=== PATIENT | female | born 1980 | race Caucasian/White ===

== ENCOUNTER 2020-06-11 14:15 | Inpatient (IN) | payer MEDICAID, OTHER ==
[~2020-06-11] VITALS: Ht 154.9 cm; Wt 62.7 kg
[~2020-06-11 14:15] MED LIST: ALBU18HF2 INH; FLUT100D2 INH; LOSA25TA41 PO; OSEL30CA PO; POTA20TA19 PO; SILD20TA PO
[2020-06-11 16:36] LABS: BASOPHILS # (AUTO) 0.1 X10'3 (0-0.2); BASOPHILS % (AUTO) 0.7 % (0-1); EOSINOPHILS # (AUTO) 0.5 X10'3 (0-0.9); EOSINOPHILS % (AUTO) 5.2 % (0-6); HEMATOCRIT 43.9 % (35.0-45.0); HEMOGLOBIN 14.9 g/dl (12.0-16.0); LYMPHOCYTES # (AUTO) 0.8 X10'3 (1.1-4.8); LYMPHOCYTES % (AUTO) 7.9 % (21-51); MEAN CORPUSCULAR HEMOGLOBIN 32.9 PG (27.0-31.0); MEAN CORPUSCULAR HGB CONC 33.9 g/dL (33.0-36.5); MEAN CORPUSCULAR VOLUME 96.9 FL (78-98); MEAN PLATELET VOLUME 7.7 FL (7.4-10.4); MONOCYTES # (AUTO) 0.6 X10'3 (0-0.9); MONOCYTES % (AUTO) 6.3 % (2-12); NEUTROPHILS # (AUTO) 7.8 X10'3 (1.8-7.7); NEUTROPHILS % (AUTO) 79.9 % (42-75); PLATELET COUNT 227 X10'3 (140-440); RED BLOOD COUNT 4.53 X10'6 (4.20-5.60); RED CELL DISTRIBUTION WIDTH 16.2 % (11.5-14.5); WHITE BLOOD COUNT 9.8 X10'3 (4.5-11.0)
[2020-06-11 16:57] LABS: ALANINE AMINOTRANSFERASE 54 U/L (12-78); ALBUMIN 3.7 G/DL (3.4-5.0); ALBUMIN/GLOBULIN RATIO 0.8 (1.1-1.5); ALKALINE PHOSPHATASE 106 IU/L (46-116); ANION GAP 6 (8-16); ASPARTATE AMINO TRANSFERASE 30 U/L (10-37); BILIRUBIN,TOTAL 1.4 MG/DL (0.1-1.0); BLOOD UREA NITROGEN 20 MG/DL (7-18); BUN/CREATININE RATIO 15.3 (6.6-38.0); CALCIUM 8.9 MG/DL (8.5-10.1); CHLORIDE 101 MMOL/L (99-107); CREATININE 1.31 MG/DL (0.40-0.90); GLUCOSE 131 MG/DL (70-104); POTASSIUM 4.5 MMOL/L (3.5-5.1); SODIUM 133 MMOL/L (135-145); TOTAL CARBON DIOXIDE 26.1 MMOL/L (24-32); TOTAL PROTEIN 8.2 G/DL (6.4-8.2); eGFR 45 ML/MIN
[2020-06-11 17:05] LABS: MAGNESIUM 1.9 MG/DL (1.5-2.4)
[2020-06-11 17:50] LABS: D-DIMER 0.51 MG/L FEU (0-0.50)
[2020-06-11 17:52] LABS: HCG SERUM QL NEGATIVE
--- NOTE | 2020-06-11 19:48 | NUR ---
per previous nurse and pt stated condition, pt was treated at [facility], where pulmonary htn put her in critical condition. after dc, pt was instructed to take new bp medication-- pt just began medication today and experienced an allergic reaction ft hives. pt reports hx of kidney issues.
[2020-06-11] MEDS ORDERED: SELE200T32 PO (20:03)
[2020-06-11] MEDS ORDERED: SILD20TA PO (20:03)
[2020-06-11] MEDS ORDERED: DIGO125T PO (20:03)
[2020-06-11] MEDS ORDERED: SPIR25TA5 PO (20:03)
[2020-06-11] MEDS ORDERED: HYDR-3686 PO (20:03)
[2020-06-11] MEDS ORDERED: PRED5TAB PO (20:03)
[2020-06-11] MEDS ORDERED: hydrOXYzine 25 MG tablet PO PRN (20:20)
[2020-06-11] MEDS ORDERED: ondansetron/PF 4mg/2ml inj IV PRN (20:25)
[2020-06-11] MEDS ORDERED: potassium Cl 40MEQ/1/2NS 520ml 520 ML IV PRN ×2 (20:25)
[2020-06-11] MEDS ORDERED: acetaminophen 325mg tablet PO PRN (20:25)
[2020-06-11] MEDS ORDERED: mag hydrox/Alum hydrox/simeth 30ml oral suspension PO PRN (20:25)
[2020-06-11] MEDS ORDERED: ipratropium/albuterol 3ml nebule NEB PRN (20:25)
[2020-06-11] MEDS ORDERED: magnesium hydroxide 30ml (MOM) UD suspension PO PRN (20:25)
[2020-06-11] MEDS ORDERED: magnesium 4gm in 100ml NS 100 ML IV PRN (20:25)
[2020-06-11] MEDS ORDERED: potassium Cl 20 mEq SR tablet PO PRN ×2 (20:25)
[2020-06-11] MEDS ORDERED: magnesium 2GM in 50ml NS 50 ML IV PRN (20:25)
[2020-06-11] MEDS ORDERED: spironolactone 25 MG tablet PO ONE (20:35)
[2020-06-11] MEDS ORDERED: SELEXIPAG PO ONE (22:15)
[2020-06-11 22:44] LABS: URINE AMPHETAMINE SCREEN NEGATIVE (Neg); URINE BARBITUATE SCREEN NEGATIVE (Neg); URINE BENZODIAZEPINES SCREEN NEGATIVE (Neg); URINE CANNABINOID SCREEN NEGATIVE (Neg); URINE COCAINE SCREEN NEGATIVE (Neg); URINE METHADONE SCREEN NEGATIVE (Neg); URINE OPIATE SCREEN NEGATIVE (Neg); URINE PHENCYCLIDINE SCREEN NEGATIVE (Neg)
[2020-06-11] MEDS: sildenafil citrate 20mg tablet PO SCH (23:51)
[2020-06-12] MEDS: normal saline 1000ml 1,000 ML IV SCH ×3 (00:17→18:26)
[2020-06-12 04:19] LABS: BASOPHILS % (AUTO) 0.6 % (0-1); EOSINOPHILS # (AUTO) 0.3 X10'3 (0-0.9); EOSINOPHILS % (AUTO) 4.2 % (0-6); HEMATOCRIT 39.1 % (35.0-45.0); HEMOGLOBIN 13.2 g/dl (12.0-16.0); LYMPHOCYTES # (AUTO) 1.4 X10'3 (1.1-4.8); LYMPHOCYTES % (AUTO) 17.4 % (21-51); MEAN CORPUSCULAR HGB CONC 33.8 g/dL (33.0-36.5); MEAN CORPUSCULAR VOLUME 97.5 FL (78-98); MEAN PLATELET VOLUME 7.4 FL (7.4-10.4); MONOCYTES # (AUTO) 0.9 X10'3 (0-0.9); MONOCYTES % (AUTO) 11.3 % (2-12); NEUTROPHILS # (AUTO) 5.2 X10'3 (1.8-7.7); NEUTROPHILS % (AUTO) 66.5 % (42-75); PLATELET COUNT 218 X10'3 (140-440); RED BLOOD COUNT 4.01 X10'6 (4.20-5.60); RED CELL DISTRIBUTION WIDTH 16.1 % (11.5-14.5); WHITE BLOOD COUNT 7.9 X10'3 (4.5-11.0)
[2020-06-12 04:32] LABS: ALBUMIN 3.1 G/DL (3.4-5.0); ANION GAP 10 (8-16); BLOOD UREA NITROGEN 18 MG/DL (7-18); BUN/CREATININE RATIO 20.7 (6.6-38.0); CHLORIDE 107 MMOL/L (99-107); CREATININE 0.87 MG/DL (0.40-0.90); GLUCOSE 81 MG/DL (70-104); POTASSIUM 3.9 MMOL/L (3.5-5.1); SODIUM 140 MMOL/L (135-145); TOTAL CARBON DIOXIDE 22.8 MMOL/L (24-32); TOTAL PROTEIN 6.9 G/DL (6.4-8.2); eGFR 72 ML/MIN
[2020-06-12 04:33] LABS: ALANINE AMINOTRANSFERASE 49 U/L (12-78); ALBUMIN/GLOBULIN RATIO 0.8 (1.1-1.5); ALKALINE PHOSPHATASE 87 IU/L (46-116); ASPARTATE AMINO TRANSFERASE 24 U/L (10-37)
[2020-06-12 04:35] LABS: CHOL/HDL RATIO 3.2 (0.00-4.99); CHOLESTEROL 224 MG/DL (0-200); HDL CHOLESTEROL 71 MG/DL (35-60); LDL CHOLESTEROL 148 MG/DL (50-100); MAGNESIUM 1.9 MG/DL (1.5-2.4); TRIGLYCERIDES 71 MG/DL (20-135)
--- NOTE | 2020-06-12 08:00 | NUR ---
PROVIDED PT BREAKFAST.
[2020-06-12] MEDS: spironolactone 25 MG tablet PO SCH ×2 (08:58→21:50)
[2020-06-12] MEDS: digoxin 125mcg (0.125mg) tablet PO SCH (09:00)
[2020-06-12] MEDS: sildenafil citrate 20mg tablet PO SCH ×3 (09:00→21:52)
[2020-06-12] MEDS: predniSONE 5mg tablet PO SCH (09:00)
[2020-06-12] MEDS: SELEXIPAG PO SCH ×2 (09:06→22:18)
[2020-06-12] MEDS: K and/or MAG REPLACEMENT MC SCH ×2 (09:07→20:00)
--- NOTE | 2020-06-12 10:00 | NUR ---
PT RESTING, WATCHING A MOVIE ON HER CELL PHONE, NO NEEDS AT THIS TIME, CALL LIGHT IN REACH
[2020-06-12] MEDS ORDERED: TORS20TA3 PO (11:42)
[2020-06-12] MEDS ORDERED: ETHA25TA4 PO (11:48)
--- NOTE | 2020-06-12 13:00 | NUR ---
PROVIDED PT LUNCH TRAY.
--- NOTE | 2020-06-12 17:58 | NUR ---
field supervisor seed production aware rn tried to call report, no nurse availible to take report at this time, will give report after shift change.
--- NOTE | 2020-06-12 18:04 | NUR ---
provided pt dinner
[2020-06-12 18:30] VITALS: BP 96/59
--- NOTE | 2020-06-12 18:30 | NUR ---
Patient in room PCU 3013. I have received report from Lisa from ER and had the opportunity to ask questions and assume patient care.
[2020-06-12] MEDS ORDERED: enoxaparin 40mg/0.4ml syringe SQ SCH (20:00)
[2020-06-12] MEDS: TORSEMIDE 20 MG PO SCH (20:00)
[2020-06-12] MEDS ORDERED: furosemide 40mg tablet PO SCH (21:40)
[2020-06-12 21:56] VITALS: BP 105/80
[2020-06-12 22:15] VITALS: BP 107/72
[2020-06-13 02:00] VITALS: BP 110/55
[2020-06-13 06:00] VITALS: BP 117/81
--- NOTE | 2020-06-13 06:20 | NUR ---
Patient in room PCU 3013. I have received report from Kvng PRATHER and had the opportunity to ask questions and assume patient care.
--- NOTE | 2020-06-13 06:21 | NUR ---
Problems reprioritized. Patient report given, questions answered & plan of care reviewed with George-YAMILKA.
[2020-06-13] MEDS: predniSONE 5mg tablet PO SCH (07:26)
[2020-06-13] MEDS: spironolactone 25 MG tablet PO SCH (07:26)
[2020-06-13] MEDS: digoxin 125mcg (0.125mg) tablet PO SCH (07:28)
[2020-06-13] MEDS: SELEXIPAG PO SCH (07:29)
[2020-06-13] MEDS: sildenafil citrate 20mg tablet PO SCH ×2 (07:30→13:00)
[2020-06-13] MEDS: TORSEMIDE 20 MG PO SCH (08:00)
[2020-06-13] MEDS: K and/or MAG REPLACEMENT MC SCH (08:00)
[2020-06-13 08:24] LABS: BASOPHILS # (AUTO) 0.1 X10'3 (0-0.2); BASOPHILS % (AUTO) 0.7 % (0-1); EOSINOPHILS # (AUTO) 0.9 X10'3 (0-0.9); EOSINOPHILS % (AUTO) 10.5 % (0-6); HEMATOCRIT 40.5 % (35.0-45.0); HEMOGLOBIN 13.5 g/dl (12.0-16.0); LYMPHOCYTES # (AUTO) 1.7 X10'3 (1.1-4.8); LYMPHOCYTES % (AUTO) 20.6 % (21-51); MEAN CORPUSCULAR HEMOGLOBIN 32.7 PG (27.0-31.0); MEAN CORPUSCULAR HGB CONC 33.2 g/dL (33.0-36.5); MEAN CORPUSCULAR VOLUME 98.4 FL (78-98); MEAN PLATELET VOLUME 7.5 FL (7.4-10.4); MONOCYTES % (AUTO) 11.8 % (2-12); NEUTROPHILS # (AUTO) 4.6 X10'3 (1.8-7.7); NEUTROPHILS % (AUTO) 56.4 % (42-75); PLATELET COUNT 245 X10'3 (140-440); RED BLOOD COUNT 4.11 X10'6 (4.20-5.60); RED CELL DISTRIBUTION WIDTH 16.3 % (11.5-14.5); WHITE BLOOD COUNT 8.1 X10'3 (4.5-11.0)
[2020-06-13 08:59] LABS: ALANINE AMINOTRANSFERASE 50 U/L (12-78); ALBUMIN 3.4 G/DL (3.4-5.0); ALBUMIN/GLOBULIN RATIO 0.9 (1.1-1.5); ALKALINE PHOSPHATASE 93 IU/L (46-116); ANION GAP 11 (8-16); ASPARTATE AMINO TRANSFERASE 22 U/L (10-37); BILIRUBIN,TOTAL 0.8 MG/DL (0.1-1.0); BLOOD UREA NITROGEN 22 MG/DL (7-18); CALCIUM 8.4 MG/DL (8.5-10.1); CHLORIDE 103 MMOL/L (99-107); GLUCOSE 89 MG/DL (70-104); MAGNESIUM 1.7 MG/DL (1.5-2.4); POTASSIUM 3.6 MMOL/L (3.5-5.1); SODIUM 138 MMOL/L (135-145); TOTAL PROTEIN 7.3 G/DL (6.4-8.2); eGFR 61 ML/MIN
[2020-06-13] MEDS ORDERED: ALBU8.5H8 INH (10:58)
[2020-06-13 11:00] VITALS: BP 100/53
--- NOTE | 2020-06-13 12:40 | NUR ---
Pt DC'd home with mother. IV removed, canula intact. Tele-box removed and returned to tele-tech. Pt alert and oriented and vitals WNL upon DC. Per Dr. Tomlinson pt is stable for DC. DC paperwork printed out and gone over with Pt. Allowed Pt to ask questions concerning DC and then answered them. New prescriptions faxed over to [facility] pharmacy on [address]. 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 Pt's belongings gathered and sent with Pt. Pt wheeled down to lobby in wheelchair. Pt left in private vehicle with mother for home.
== END 2020-06-13 12:40 | disposition home or self-care (01) | DRG 811 ==
LOC: ER 14:17 → ED HOLD 20:24 → PCU 3S 06-12 18:45
PROVIDERS: ADMIT Family Medicine; ATTEND Family Medicine
DX: T78.49XA Other allergy, initial encounter (principal); T50.1X5A Adverse effect of loop [high-ceiling] diuretics, initial encounter; E87.1 Hypo-osmolality and hyponatremia; N18.30 Chronic kidney disease, stage 3 unspecified; I48.91 Unspecified atrial fibrillation; X58.XXXA Exposure to other specified factors, initial encounter; I50.32 Chronic diastolic (congestive) heart failure; I27.21 Secondary pulmonary arterial hypertension; Z83.3 Family history of diabetes mellitus; Z87.891 Personal history of nicotine dependence
CPT/HCPCS: 36415; 71045; 80053; 80061; 80305; 83735; 83880; 84484; 84703; 85025; 85379; 85610; 87081; 87635; 93005; 93306; 93308; 94640; 94760; 99285; C9803; G0378; J1650; J7030; J7512; Q0177

== ENCOUNTER 2020-06-21 15:46 | Outpatient (CLI) | payer MEDICAID ==
[~2020-06-21 15:46] MED LIST changes: -ALBU18HF2 INH; +ALBU8.5H8 INH; +DIGO125T PO; -FLUT100D2 INH; +HYDR-3686 PO; -LOSA25TA41 PO; -OSEL30CA PO; -POTA20TA19 PO; +PRED5TAB PO; +SELE200T32 PO; +SPIR25TA5 PO; +TORS20TA3 PO
[2020-06-21 16:52] LABS: URINE HCG NEGATIVE (NEG)
[2020-06-21 16:59] LABS: ALANINE AMINOTRANSFERASE 41 U/L (12-78); ALBUMIN 4.4 G/DL (3.4-5.0); ALKALINE PHOSPHATASE 99 IU/L (46-116); ANION GAP 10 (8-16); ASPARTATE AMINO TRANSFERASE 26 U/L (10-37); BILIRUBIN,TOTAL 0.8 MG/DL (0.1-1.0); BLOOD UREA NITROGEN 21 MG/DL (7-18); BUN/CREATININE RATIO 13.9 (6.6-38.0); CALCIUM 9.1 MG/DL (8.5-10.1); CHLORIDE 101 MMOL/L (99-107); CHOL/HDL RATIO 4.7 (0.00-4.99); CHOLESTEROL 299 MG/DL (0-200); CREATININE 1.51 MG/DL (0.40-0.90); GLUCOSE 100 MG/DL (70-104); HDL CHOLESTEROL 63 MG/DL (35-60); LDL CHOLESTEROL 190 MG/DL (50-100); POTASSIUM 3.8 MMOL/L (3.5-5.1); SODIUM 141 MMOL/L (135-145); TOTAL PROTEIN 8.9 G/DL (6.4-8.2); TRIGLYCERIDES 208 MG/DL (20-135); eGFR 38 ML/MIN
[2020-06-21 17:04] LABS: HEMOGLOBIN A1C 6.1 % (4.5-6.2)
== END 2020-06-21 23:59 | disposition home or self-care (01) ==
LOC: RAD 15:46
DX: I27.20 Pulmonary hypertension, unspecified (principal)
CPT/HCPCS: 36415; 80053; 80061; 80162; 81025; 82306; 83036; 83880

== ENCOUNTER 2021-08-22 13:00 | Outpatient (CLI) | payer MEDICAID ==
[~2021-08-22 13:00] MED LIST changes: +ALBU8.5H17 INH; -ALBU8.5H8 INH
[2021-08-22 14:19] LABS: URINE AMPHETAMINE SCREEN NEGATIVE (Neg); URINE BARBITUATE SCREEN NEGATIVE (Neg); URINE BENZODIAZEPINES SCREEN NEGATIVE (Neg); URINE CANNABINOID SCREEN NEGATIVE (Neg); URINE COCAINE SCREEN NEGATIVE (Neg); URINE METHADONE SCREEN NEGATIVE (Neg); URINE OPIATE SCREEN NEGATIVE (Neg); URINE PHENCYCLIDINE SCREEN NEGATIVE (Neg)
[2021-08-22 14:43] LABS: ALANINE AMINOTRANSFERASE 43 U/L (12-78); ALBUMIN 3.8 G/DL (3.4-5.0); ALBUMIN/GLOBULIN RATIO 0.9 (1.1-1.5); ALKALINE PHOSPHATASE 122 IU/L (46-116); ANION GAP 13 (8-16); ASPARTATE AMINO TRANSFERASE 43 U/L (10-37); BETA HCG,QUANTITATIVE < 1.0 mIU/ml; BILIRUBIN,TOTAL 1.5 MG/DL (0.1-1.0); BLOOD UREA NITROGEN 25 MG/DL (7-18); BUN/CREATININE RATIO 17.6 (6.6-38.0); CHLORIDE 100 MMOL/L (99-107); CREATININE 1.42 MG/DL (0.40-0.90); GLUCOSE 88 MG/DL (70-104); POTASSIUM 4.4 MMOL/L (3.5-5.1); SODIUM 139 MMOL/L (135-145); TOTAL CARBON DIOXIDE 25.9 MMOL/L (24-32); TOTAL PROTEIN 8.2 G/DL (6.4-8.2); eGFR 41 ML/MIN
== END 2021-08-22 23:59 | disposition home or self-care (01) ==
LOC: LAB 13:00
DX: I27.20 Pulmonary hypertension, unspecified (principal)
CPT/HCPCS: 36415; 80053; 80305; 84702